=== PATIENT | female | born 1935 | race Caucasian/White ===

== ENCOUNTER 2017-03-09 19:56 | Inpatient (IN) | payer MEDICARE ==
[2017-03-09 20:49] LABS: #Basophils 0.1 thou/uL (0.0-0.2); #Eosinphils 0.1 thou/uL (0.0-0.7); #Monocytes 0.6 thou/uL (0.11-0.59); #Neutrophils 5.2 thou/uL (1.40-6.50); %Basophils 0.7 % (0.0-1.0); %Eosinophils 1.8 % (0.0-10.0); %Lymphocytes 24.8 % (21.0-51.0); %Monocytes 7.7 % (0.0-10.0); Hemoglobin 11.6 g/dL (12.0-16.0); Mean Corpuscular HGB CONC 32.9 g/dL (32.0-36.0); Mean Corpuscular Hemoglobin 33.3 pg (27.0-31.0); Platelet Count 269 thou/uL (130-400); RBC Distribution Width 11.9 % (11.5-14.5); Red Blood Cell (RBC) Count 3.48 mill/uL (4.20-5.40); White Blood Cell (WBC) Count 7.9 thou/uL (4.8-10.8)
--- NOTE | 2017-03-09 20:52 | RAD ---
AP VIEW OF THE CHEST 03/09/17 INDICATION: Syncope. COMPARISON: None. IMPRESSION: No acute cardiopulmonary abnormality. COMMENTS: Lungs are mildly hyperinflated but clear. The cardiomediastinal silhouette is within normal limits. T here are vascular calcifications involving the aortic arch. No definite acute osseous abnormality is evident. POS: [facility]
[2017-03-09 20:54] LABS: PTT 30.3 SEC (22.9-36.1); Prothrombin Time 13.4 SEC (12.0-14.7)
--- NOTE | 2017-03-09 21:04 | CT ---
CT OF THE BRAIN WITHOUT CONTRAST 03/09/17 INDICATION: History of syncope and dizziness. COMPARISON: None. FINDINGS: No acute infarct, hemorrhage, or hydrocephalus is present. Septum pellucidum and third ventricle are midline. Mild age related atrophy is present involving the cerebral and cerebellar hemispheres. The m astoid air cells and paranasal sinuses are clear. There are vascular calcifications involving the int racranial arteries. The skull is intact. IMPRESSION: No acute intracranial abnormalities. POS: [facility]
[2017-03-09 21:17] LABS: ALT (SGPT) 13 U/L (8-55); AST (SGOT) 18 U/L (5-34); Albumin 3.6 g/dL (3.4-4.8); Alkaline Phosphatase 52 U/L (40-150); Anion Gap 15 mmol/L (10-20); BUN (Urea Nitrogen) 14 mg/dL (9.8-20.1); Bilirubin, Total 0.2 mg/dL (0.2-1.2); CK (CPK) 35 U/L (29-168); Calc. Creatinine Clearance 0 mL/min (70-130); Carbon Dioxide 23 mmol/L (23-31); Chloride 108 mmol/L (98-107); Estimated GFR-MDRD 84; Globulin 2.8 g/dL (2.4-3.5); Glucose 117 mg/dL (83-110); Lipase 28 U/L (8-78); Potassium 4.4 mmol/L (3.5-5.1); Protein, Total 6.4 g/dL (6.0-8.3); Sodium 142 mmol/L (136-145)
[2017-03-09 21:20] LABS: CKMB 1.6 ng/mL (0-6.6); Troponin I 0.014 ng/mL (< 0.028)
[2017-03-09 23:12] LABS: Bilirubin Negative (Negative); Blood, Urine Negative (Negative); Clarity CLEAR (Clear); Glucose, Urine (Dipstick) Negative (Negative); Leukocyte Negative (Negative); Nitrite Negative (Negative); Protein, Urine (Dipstick) Negative (Neg-Trace); Specific Gravity, Urine 1.013 (1.002-1.036); Urobilinogen 0.2 mg/dL (0.2-1.0)
[2017-03-10] MEDS ORDERED: Ondansetron ODT 4 MG TAB PO PRN (00:40)
[2017-03-10] MEDS ORDERED: Acetaminophen 325 MG TAB PO PRN (00:40)
[2017-03-10] MEDS ORDERED: Meclizine HCl 25 MG TAB PO SCH ×2 (00:45→05:15)
[2017-03-10 01:53] LABS: CKMB 1.4 ng/mL (0-6.6)
[2017-03-10 02:20] LABS: Troponin I Less than 0.010 ng/mL (< 0.028)
[2017-03-10 03:55] LABS: #Eosinphils 0.1 thou/uL (0.0-0.7); #Lymphocytes 2.2 thou/uL (1.20-3.40); #Monocytes 0.9 thou/uL (0.11-0.59); #Neutrophils 5.5 thou/uL (1.40-6.50); %Basophils 0.3 % (0.0-1.0); %Eosinophils 1.2 % (0.0-10.0); %Monocytes 10.2 % (0.0-10.0); %Neutrophils 63.4 % (42.0-75.0); Hemoglobin 11.1 g/dL (12.0-16.0); Mean Corpuscular HGB CONC 32.1 g/dL (32.0-36.0); Mean Corpuscular Hemoglobin 32.4 pg (27.0-31.0); Mean Platelet Volume 6.9 fL (7.4-10.4); Platelet Count 247 thou/uL (130-400); RBC Distribution Width 11.9 % (11.5-14.5); Red Blood Cell (RBC) Count 3.44 mill/uL (4.20-5.40); White Blood Cell (WBC) Count 8.7 thou/uL (4.8-10.8)
--- NOTE | 2017-03-10 04:10 | HP ---
DATE OF ADMISSION: 03/09/2017 TIME OF SERVICE: 2355 hours. PRIMARY CARE PHYSICIAN: Dr. Argentina Watson. PRIMARY ATOMIZER ASSEMBLER: Dr. North Duke. CHIEF COMPLAINT: Syncope. HISTORY OF PRESENT ILLNESS: Ms. Watkins is a pleasant 81-year-old white female with a history of hypertension, GERD, hyperlipidemia, and coronary artery disease. She sees Dr. Duke every 6 months and follows up with a regular doctor on a normal basis. Today, she was in the kitchen and bent over into the project engineering director and suddenly felt dizzy. She subsequ ently describes sensation of the room spinning around her. She became unsteady on her feet and fell over to the floor. She sustained her injuries. Does not think that she lost consciousness. She had no bowel or bladder incontinence and no tongue biting. She denies any chest pain or difficulty prasad thing, no nausea and vomiting, no GI bleeding. She has been having some sensations of this off and on for the last 3 weeks. Currently, she feels we ak after episodes, but then feel stronger within 30 to 40 minutes. She was brought to the emergency department for evaluation, Here she was noted to have a heart rate in the 30s and pacer pads were placed, but have not needed to be used. On my interview, she describes the sensation of the room spinning around her and a loud metal shabazz s raymond inside of her head when she has lateral rotation of her head. She feels like she is going to pas s out, but does not have the dark tunnel and does not feel like the floor is moving underneath her. In the emergency department, she had negative labs. We were called for further workup. No fevers or chills, no cough or sputum production. PAST MEDICAL HISTORY: 1. Hypertension. 2. GERD. 3. Hyperlipidemia. 4. Coronary artery disease. PAST SURGICAL HISTORY: 1. PTCA with stent x1. 2. Back surgery x2. HOME MEDICATIONS: 1. Bisoprolol 7.5 mg daily. 2. Nexium 20 mg daily. 3. Famotidine 20 mg daily. 4. Lasix 20 mg daily. 5. Isosorbide mononitrate 120 mg daily. 6. KCl 10 mEq daily. 7. Trimethoprim 100 mg daily. 8. Crestor 10 mg daily. 9. Ranexa 500 mg daily. ALLERGIES: NKDA. FAMILY HISTORY: Negative for clotting or bleeding disorder, no venous function. SOCIAL HISTORY: Negative for habits x3. She is . Her accompanies her. REVIEW OF SYSTEMS: Ten point review of systems was performed negative for all systems except stated as per HPI. PHYSICAL EXAMINATION: VITAL SIGNS: Temperature 97.8, pulse 42. During my interview, her pulse ranged from [address] up to 75. She remained in sinus rhythm with same morphology. Blood pressure 131/49, respiratory rat e 17, satting 94% on room air. GENERAL: She is awake. She is alert. She is oriented x3. She is a well-developed, well-nourished, overweight elderly white female, appears to be in no acute distress. HEENT: Normocephalic, atraumatic. Pupils are equal, reactive to light bilaterally, mucous members a re moist. She has no visible lesions. No thrush. NECK: Supple, with no lymphadenopathy, no JVD, no thyromegaly. She has normal carotid upstrokes. S he has a bruit present on the right, but not on the left. LUNGS: Clear to auscultation bilaterally without wheezes, rales, or rhonchi. She has good air movem ent and symmetrical chest excursion. CARDIOVASCULAR: Shows normal S1 and S2. I do not appreciate any murmurs. She is in a regular rhyth m with widely varying rates. ABDOMEN: Soft, it is nontender, nondistended, no mass, no organomegaly. Normoactive bowel sounds pr esent in all 4 quadrants. There is no rebound, rigidity, or guarding. EXTREMITIES: No cyanosis, no clubbing. She has 1+ edema bilateral lower extremities in the mid tibi a level down. Her right leg appears slightly larger than her left, but when I repositioned seemed to be the same. SKIN: Otherwise warm, moist, and well perfused. She does have a superficial varicosities present ab out both of her bilateral lower extremities. MUSCULOSKELETAL: Normal to inspection. She has no inflamed joints. No palpable effusions. NEUROLOGIC: Her cranial nerves II-XII are grossly intact. She has no nystagmus. She has normal spe ech pattern. She has 5/5 strength in all 4 of her extremities. I attempted to get her to rotate her head quickly left to right, but she refused because she felt like it was going to make her have more of the clinging sound. LABORATORY DATA: CMP showed a sodium of 142, potassium 4.4, chloride 108, bicarb 23, BUN 14, creatin ine 0.67, glucose 117, and calcium 9.0. INR normal at 1.0. BNP 67, MB fraction of 1.6, troponin I 0 .014 and TSH 1.56. Liver functions are normal. CBC showed a white count of 7.9, hemoglobin of 11.0, hematocrit 35.2, and platelets 269,000. IMAGING: CT of the brain was negative for acute intracranial abnormalities. Her chest x-ray showed no acute cardiopulmonary abnormalities. ASSESSMENT AND PLAN: 1. Dizziness/presyncope. The patient never passed out. She did have some sensation that she might pass out. Her biggest complaint is a horizontal spinning of the room around her when she laterally r otates her head. Certainly sounds like benign positional vertigo. We will put on meclizine and tasha tor response. We will have PT, OT evaluate her. 2. Sinus bradycardia. Patient has widely varying rate. Certainly, this could be contributing to he r dizziness or presyncope. Dr. Thomas was contacted by the emergency department. We will follow up on the recommendations. She does not having sick sinus syndrome. She might benefit from a pacemaker. 3. Hypertension. Given her low heart rate. Hold her bisoprolol for right now, we will continue her isosorbide and Ranexa. 4. Gastroesophageal reflux disease on famotidine and Nexium, we will continue. 5. Hyperlipidemia, on Crestor, we will continue. 6. History of coronary artery disease without symptoms at present.
[2017-03-10 04:13] LABS: Anion Gap 12 mmol/L (10-20); BUN (Urea Nitrogen) 14 mg/dL (9.8-20.1); Calc. Creatinine Clearance 0 mL/min (70-130); Calcium 8.7 mg/dL (7.8-10.44); Carbon Dioxide 25 mmol/L (23-31); Cardiac Risk 3.5 (Less than 4.5); Chloride 110 mmol/L (98-107); Cholesterol 166 mg/dl (< 200 Desired); Estimated GFR-MDRD 87; Glucose 117 mg/dL (83-110); HDL Cholesterol 47 mg/dL (>60 Neg Risk); LDL Cholesterol, Calculated 103 mg/dL; Potassium 4.2 mmol/L (3.5-5.1); Sodium 143 mmol/L (136-145); Triglycerides 79 mg/dL (Less than 150)
[2017-03-10] MEDS: Meclizine HCl 25 MG TAB PO SCH ×3 (07:19→21:25)
--- NOTE | 2017-03-10 07:45 | ULT ---
BILATERAL CAROTID DUPLEX ULTRASOUND: HISTORY: Right-sided carotid bruit and dizziness. TECHNIQUE: [place] scale ultrasound with color flow and spectral Doppler imaging of the extracranial carotid artery systems is performed bilaterally. FINDINGS: There is mild plaque formation on either side. The peak systolic velocity in the right ICA measures 111 cm/s with an end-diastolic velocity of 31 cm /s and a systolic ration of 1.0. The peak systolic velocity in the left ICA measures 99 cm/s with an end velocity of 28 cm/s and a sys tolic ration of 0.8. Flow in both vertebral arteries remains antegrade. IMPRESSION: No evidence of hemodynamically significant stenosis. POS: [facility]
[2017-03-10] MEDS: Enoxaparin Sodium 40 MG/0.4 ML SYRINGE SC SCH (08:00)
[2017-03-10] MEDS: Aspirin 325 mg Enteric Coated Tablet PO SCH (08:00)
[2017-03-10] MEDS: Famotidine 20 MG TAB PO SCH ×2 (08:01→21:25)
[2017-03-10] MEDS ORDERED: HYDROcodone/Acetaminophen 5/325 mg Tablet ONE (08:08)
[2017-03-10] MEDS: HYDROcodone/Acetaminophen 5/325 mg Tablet PO PRN (08:09)
[2017-03-10 09:54] LABS: Troponin I Less than 0.010 ng/mL (< 0.028)
[2017-03-10] MEDS ORDERED: Meclizine HCl 25 MG TAB ONE (14:09)
[2017-03-10] MEDS: Sodium Chloride 0.9% 1,000 ML IV SCH ×2 (14:11→16:13)
--- NOTE | 2017-03-10 14:52 | PDOC.PN ---
- Subjective Encounter Start Date: 03/10/17 Encounter Start Time: 11:30 Patient is seen today, alert and oriented. Discussed with Daughter at bedside. pt is having no chest pain, She is drowsy. - Objective Resuscitation Status: Resuscitation Status FULL:Full Resuscitation MAR Reviewed: Yes Vital Signs & Weight: Vital Signs (12 hours) Temp Pulse Resp BP Pulse Ox 03/10/17 09:22 63 18 116/47 L 95 03/10/17 08:10 98.1 F 61 14 129/50 L 96 03/10/17 08:00 98.1 F 63 18 94 L I&O: 03/09/17 03/10/17 03/11/17 06:59 06:59 06:59 Intake Total 0 Balance 0 Result Diagrams: 03/10/17 03:42 03/10/17 03:42 Phys Exam - Physical Examination HEENT: PERRLA, moist MMs Neck: no nodes, no JVD Respiratory: no wheezing, no rales Cardiovascular: RRR, no significant murmur Gastrointestinal: soft, non-tender Musculoskeletal: no edema, pulses present Neurological: non-focal, normal sensation Lymphatic: no nodes Psychiatric: normal affect, A&O x 3 Dx/Plan (1) Syncope, cardiogenic Code(s): R55 - SYNCOPE AND COLLAPSE Status: Acute (2) Sinus bradycardia Code(s): R00.1 - BRADYCARDIA, UNSPECIFIED Status: Acute (3) Hypertension Code(s): I10 - ESSENTIAL (PRIMARY) HYPERTENSION Status: Acute (4) GERD (gastroesophageal reflux disease) Code(s): K21.9 - GASTRO-ESOPHAGEAL REFLUX DISEASE WITHOUT ESOPHAGITIS Status: Acute (5) CAD (coronary artery disease) Code(s): I25.10 - ATHSCL HEART DISEASE OF [place] CORONARY ARTERY W/O ANG PCTRS Status: Acute - Plan cont current plan of care, plan discussed w/ family, PT/OT, DVT proph w/lovenox * . Plan: Patient has Symptomatic bradycardia, pt is having Pacers Attached, Cardiology is consulted and plnned for EP study. Will continue to Monitor pt on Telemetry and do Echo to look for Valvular abnormalities. Hypertension Well controlled but on lower Side, Held Bystolic. Continue with Famotidine for GERD. H/o CAD, will continue with Aspirin for now unless cardiology planned for Pacemaker. Will discuss with Cardioogy. DVT prophylaxis Lovenox. Disposition: Pt lives at Home with her Daughter. may need Home health. - Discharge Day Encounter end time: 12:15 Review of Systems - Review of Systems Constitutional: weakness, malaise Eyes: negative: Pain, Vision Change, Conjunctivae Inflammation, Eyelid Inflammation, Redness, Other ENT: negative: Ear Pain, Ear Discharge, Nose Pain, Nose Discharge, Nose Congestion, Mouth Pain, Mouth Swelling, Throat Pain, Throat Swelling, Other Respiratory: negative: Cough, Dry, Shortness of Breath, Hemoptysis, SOB with Excertion, Pleuritic Pain, Sputum, Wheezing Cardiovascular: light headedness Gastrointestinal: negative: Nausea, Vomiting, Abdominal Pain, Diarrhea, Constipation, Melena, Hematochezia, Other Genitourinary: negative: Dysuria, Frequency, Incontinence, Hematuria, Retention , Other Musculoskeletal: negative: Neck Pain, Shoulder Pain, Arm Pain, Back Pain, Hand Pain, Leg Pain, Foot Pain, Other Skin: negative: Rash, Lesions, Sage, Bruising, Other Neurological: Weakness. negative: Numbness, Incoordination, Change in Speech, Confusion, Seizures, Other - Medications/Allergies Allergies/Adverse Reactions: Allergies Allergy/AdvReac Type Severity Reaction Status Date / Time cephalexin Allergy Verified 03/10/17 14:16 clindamycin Allergy Verified 03/10/17 14:15 iodine Allergy Verified 03/10/17 07:49 phenazopyridine Allergy Verified 03/10/17 14:16 Medications: Current Medications Acetaminophen (Tylenol) 650 mg PO Q4H PRN PRN Reason: Headache/Fever or Pain Hydrocodone Bitart/Acetaminophen ([place] 5/325) 1 tab PO Q4H PRN PRN Reason: Moderate Pain (4-6) Last Admin: 03/10/17 08:09 Dose: 1 tab Aspirin (Ecotrin) 325 mg PO DAILY [facility] Last Admin: 03/10/17 08:00 Dose: 325 mg Enoxaparin Sodium (Lovenox) 40 mg SC 0900 [facility] Last Admin: 03/10/17 08:00 Dose: 40 mg Famotidine (Pepcid) 20 mg PO BID [facility] Last Admin: 03/10/17 08:01 Dose: 20 mg Sodium Chloride (Normal Saline 0.9%) 1,000 mls @ 70 mls/hr IV .[id number] [facility] Last Admin: 03/10/17 14:11 Dose: 1,000 mls Isosorbide Mononitrate (Imdur) 120 mg PO DAILY [facility] Last Admin: 03/10/17 08:01 Dose: 120 mg Meclizine HCl (Antivert) 25 mg PO Q8HR [facility] Last Admin: 03/10/17 14:12 Dose: 25 mg Ondansetron HCl (Zofran Odt) 4 mg PO Q6H PRN PRN Reason: Nausea/Vomiting Pantoprazole Sodium (Protonix) 40 mg PO DAILY [facility] Last Admin: 03/10/17 08:01 Dose: 40 mg Ranolazine (Ranexa) 500 mg PO BID [facility] Last Admin: 03/10/17 08:02 Dose: 500 mg Rosuvastatin Calcium (Crestor) 10 mg PO HS [facility] Sodium Chloride (Flush - Normal Saline) 10 ml IVF Q12HR [facility] Last Admin: 03/10/17 08:03 Dose: 10 ml Sodium Chloride (Flush - Normal Saline) 10 ml IVF PRN PRN PRN Reason: Saline Flush
[2017-03-10 17:22] LABS: CKMB 0.8 ng/mL (0-6.6); Troponin I Less than 0.010 ng/mL (< 0.028)
--- NOTE | 2017-03-10 19:24 | CON ---
DATE OF CONSULTATION: 03/10/2017 PRIMARY CARE PHYSICIAN: Argentina Watson M.D. PRIMARY HOUSE MOVER HELPER: [place] Duke M.D. REFERRING DOCTOR: Vignesh Tatum MD REASON FOR CARDIOLOGY CONSULTATION: Sinus bradycardia, dizziness, and fall. No syncopal. HISTORY OF PRESENT ILLNESS: Ms. Watkins is an 81-year-old female with a significant history of coronary artery disease with a history of stent in 1997, chronic back pain and chronic bladder infection. She fell at home on 03/08 when she was bending over to the child adolescent psychiatrist. She felt spinning like dizziness and almost blacked out. She knew she was falling and so tried pulling herself back to keep her balance. However, she fell and she hit her back of her head on the floor. EMS was called by her , who was at the site. She was transferred to [facility] for further evaluation and study. At the ER, the patient was found to be in bradycardia with heart rates down to 30s. Per daughter's report, the patient was asymptomatic, alert and oriented x4 when her heart rate was down to 30s. The patient denies any lightheadedness or near syncopal episode. The patient's CT scan of the head showed no acute intracranial abnormality. The patient's carotid Doppler showing no evidence of stenosis. Patient has the echocardiogram during this admission, the result is pending at this time. She reports that she felt chronic fatigue for more than a few months with vertigo like dizziness. When she was transferred to telemetry floor, her telemetry record showed multiple episodes of bradycardia with 2nd degree AV block Type 2, which longest was more than 1 minute. During the episodes, the patient was alerted and oriented x4, denies any shortness of breath, chest pain or discomfort in her chest, palpitations or fluttering in her chest, nausea, vomiting, diaphoresis or any other cardiac complaints. She was thinking patient's fatigue has come from her stress because she lost her sister about 1 month ago and lost her 2 sons in the past. She denies any history of diabetes. She is eating well and she tried to drink 3-4 bottles of water a day, although she was diagnosed with hiatal hernia and checked by Dr. Portillo a couple of weeks ago. At this time, she does not have the EGD result. She had a history of stent placements x1 in the LAD in 1997. Last cardiac catheterization was in 2010, which shows a patent stent and 50% stenosis in the LAD with EF of 60%. Patient's last echocardiogram was in 2010 which shows EF of 50% to 55%, moderate mitral valve regurgitation, mild to moderate tricuspid regurgitation. PAST MEDICAL HISTORY: 1. Coronary artery disease with stent placement x1 in the LAD in 1997. 2. Hypertension. 3. Hiatal hernia following managed by [facility], Dr. Portillo. 4. Chronic bladder infection. She has been seen urologist. However, she has not been followed up with him for more than 3 months. PAST SURGICAL HISTORY: 1. Stent x1 in the LAD in 1997. 2. Back surgery x2. 3. Cholecystectomy. 4. Uterine suspension due to chronic bladder infections. FAMILY HISTORY: Patient's mother has had a history of pacemaker placement and patient's father due to complication of chronic heart failure. Patient 's 2 sons due to lung cancer possibly from smoking. SOCIAL HISTORY: Patient lives with in her and her daughter. Her daughter lives close by. She is house maker. She stopped smoking when she was around 30s. She denies illicit drug abuse. She enjoys half cup of coffee in the morning. She denied alcohol abuse. ALLERGIES: She is allergic to, 1. IODINE. 2. CEPHALEXIN. 3. CLINDAMYCIN. 4. PHENAZOPYRIDINE. HOME MEDICATIONS: Nexium 40 mg once a day, vitamin C 500 once a day, calcium 500 mg twice a day, vitamin D3 of 1000 units once a day, flaxseed oil 1000 mg 2 tablets twice a day, cranberry supplement 500 mg once a day, Vagifem 10 mcg 1 tablet every day for 14 days and 1 tablet twice per week for duration of use, promethazine DM 6.25/15 of 5 mL by mouth every 6 hours as needed, tetracycline 250 mg 1 tablet every 6 hours, amoxicillin 500 mg once a day, trimethoprim 100 mg q.12 hours, Ecotrin 325 once a day, ibuprofen 400 mg 1 tablet every 4 hours as needed, bisoprolol 5 mg 1.5 tablets once a day, KCl 10 mEq once a day, Lasix 20 mg once a day, Crestor 10 mg once a day, Ranexa 500 mg twice a day, isosorbide mononitrate 120 mg once a day. REVIEW OF SYSTEMS: The following complete review of systems was negative, unless otherwise mentioned in the HPI or below. Constitutional: Weight loss, weight gain, sense of well-being, ability to conduct usual activities, exercise tolerance. Skin: Rash, itching, change in hair growth or loss, nail changes, breast lumps, tenderness, swelling, nipple discharge. Eyes: Vision: Double vision, tearing, blind spots, pain. She has complained about double vision, blurry vision when she has dizziness. HEENT: Headache, nose bleeding, cold, obstruction, discharge from nose, dental difficulty, gingival bleeding, dentures , neck stiffness, pain, tenderness, mass in thyroid or other areas. Cardiovascular: Precordial pain, substernal distress, palpitations, syncope, dyspnea, orthopnea, edema, cyanosis, hypertension, heart murmur, varicosis, claudication. Respiratory: Shortness of breath, wheezing, stridor, cough, hemoptysis. Gastrointestinal: Poor appetite, dysphagia, indigestion, abdominal pain, heartburn, nausea, vomiting, jaundice, constipation, diarrhea, abnormal blood in stool. Genitourinary: Urgency, frequency, dysuria, nocturia , hematuria, polyuria, oliguria, unusual color of urine. Musculoskeletal: She is complaining of the pain around her pelvis due to the history of fall a couple days ago. Negative to swelling, redness or heat of muscle or joint, limitation, of motion, muscular weakness, atrophy, cramps. Neurologic: Conversion paralysis, tremor, incoordination, difficulty with memory, speech, sensory or motor disturbance or muscular coordination. Psychiatric: Emotional problem, anxiety, depression, previous psychiatric care, unusual perceptions, hallucinations. PHYSICAL EXAMINATION: VITAL SIGNS: Blood pressure 116/47. Her heart rate is low as 127 up to 60s with symptomatic respiratory rate 18, temperature 98.1. GENERAL: Well-developed, well-nourished without any acute distress. HEENT: Normocephalic, atraumatic. Eyes: There are no hematoma to her head. EYES: Extraocular muscle movement is intact. Nose mucosae are moist without lesion. NECK: No JVD. Neck is supple, normal range of motion. She does not want to move the head quick due to the vertigo-like dizziness. LUNGS: Clear to auscultation bilaterally. No wheezing, rales, rhonchi noted. CARDIOVASCULAR: Regular rate and rhythm. Normal S1, S2. There are no S3 or S4. No significant murmur, hives, thrill, bruit or rub noted. There are 2+ pulses in the bilateral dorsal pedis, posterior tibial and popliteal. Carotid pulse is present without bruit or thrill. No murmur. 1+ pitting edema in bilateral lower extremities. ABDOMEN: Soft and nontender or mass to palpate, nondistended. Bowel sounds are present. MUSCULOSKELETAL: Able to move all extremities. SKIN: Warm and dry. No skin rash, lesion, or bruise noted. NEUROLOGIC: Alert, oriented x4, awake, normal. Normal affect. Nonfocal. PSYCHIATRIC: Mood, affect normal. EKG: The patient's 12-lead EKG in the ER shows bradycardia, heart rate of [address] elevation or T-wave depression with right bundle- branch block. The patient's carotid Doppler during this admission showed no evidence of stenosis. The patient's echocardiogram was taken, the result is pending at this time. LABORATORY DATA: Patient's WBC 8.7, hemoglobin 11.1, hematocrit 34.7, platelets 274. Sodium 143, potassium 4.2, BUN 14, creatinine 0.65, glucose 117. The patient's CK-MB is 0.1. Troponin negative. Patient's total cholesterol 166, triglycerides 79, HDL is 47, LDL 103 and TSH 1.5631. ASSESSMENT AND PLAN: 1. Dizziness and near syncopal episode secondary to Second degree AV block Type 2. Although patient's bisoprolol was on hold at the ER, the patient's EKG still shows heart rates going down to 30s with 2nd degree AV block type 2. The patient has never passed out and has not had any symptoms such as near syncope. However, she has vertigo like dizziness and chronic fatigue for more than a few months. She has been receiving meclizine from the ER; however, because she has complained of weakness for a couple months, pacemaker placement is beneficial for this patient and her diagnoses and symptoms. 2. Coronary artery disease with history of stent x1 in LAD to [place] in 1997. Patient's condition is stable at this time. We would like to continue to monitor on the telemetry. 3. Hypertension, type patient's blood pressure has been stable at this time. We would like to continue to monitor and adjust patient medication as needed hyperlipidemia, she is on the Crestor. We like to continue to monitor. Thank you very much for allowing Cardiology service to participate in the care of your patient. We will follow along with the patient's care team and make further recommendations as appropriate. KELSY
--- NOTE | 2017-03-11 00:58 | CON ---
DATE OF CONSULTATION: 03/10/2017 INDICATION FOR CONSULTATION: Severe bradycardia which has been symptomatic with episode of syncope. HISTORY OF PRESENT ILLNESS: This is a very unfortunate 81-year-old female who has been followed by Lee Duke for several years. She has undergone angioplasty and stent placement. She has had a histo ry of hypertension and has been treated by beta blockers for the last several weeks. She has been co mplaining of some dizziness and sounds in her head, but she cannot clearly describe a noise. 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 When she presented to the emergency room, she h ad severe bradycardia which is actually a second-degree AV heart block type 2 with heart rates in the 30s to 40s. The initial EKG showed a heart rate of 38 beats per minute. She has been placed on ext ernal pacemaker which she is not using. She has been relatively asymptomatic otherwise with the chepe ycardia. She has had no syncopal episodes since being here and also, the beta blockers have been dis continued, but she continued to have some episodes of second-degree AV heart block even today. We wi ll continue to wait for the beta travis to completely wear off, but it appears that this lady most l ikely is going to need a pacemaker insertion prior to discharge and most likely has significant sever e AV jose disease given the high degree of this blockage and certainly is at risk for developing com plete AV heart block. I did explain to her the procedure and the risks of pacemaker insertion. We w ill continue to follow her for tomorrow at least and decide. If she becomes urgent then, we will hans ce pacemaker sooner than later, she does understand. I did explain the procedure and the risks to in clude bleeding, infection, possibility of pneumothorax, hemothorax, or pericardial tamponade and she is agreeable that should she need a pacemaker, then we will proceed with this either on tomorrow if i t becomes urgent or probably Saturday if she remains relatively stable, otherwise. If all of her symp toms and EKG changes completely resolve, once the beta travis is out of the system, then we may be a ble to avoid the pacemaker for a while, but it would appear that she most likely is going to need a p acemaker. As far as the review of systems, past medical history, social history, please refer to the notes dictated by the nurse practitioner. PHYSICAL EXAMINATION: GENERAL: Reveals a very pleasant lady who is in no acute distress. She is alert and oriented at thi s time. Her heart rate has been in the 60s this afternoon and without any significant complaints, bu t she did have some episodes of second-degree heart block again around 4:30 in the afternoon. HEENT: Shows the head to be normocephalic and atraumatic. Carotid pulses are present; they are slig htly decreased, but I did not hear any significant bruits. She has very soft bruits which are radiat ing from the aortic area, which most likely indicates some mild aortic valve sclerosis, but no signif icant murmurs were noted. CHEST: Clear to auscultation. CARDIOVASCULAR: Reveals a regular rate at this time, somewhat bradycardic at times, but otherwise is regular during my examination. There were no gross murmurs noted. She has a very soft systolic mur mur at the apex. ABDOMEN: Soft and nontender. Positive bowel sounds are present. EXTREMITIES: Showed no clubbing or cyanosis. She did have some mild right ankle edema. Pedal pulse s are present. NEUROLOGIC: She appears to be intact. She does have a small lump on the back of her head, but with some tenderness, but otherwise appears to be stable. IMPRESSION: 1. Second-degree atrioventricular heart block with severe bradycardia with symptomatic syncope and m ost likely will need to undergo pacemaker insertion. She has been on beta blockers. We will wait fo r these to be washed out and if she continues to have episodes, then a pacemaker will be in order and most likely, she will be needing a pacemaker regardless due to the high possibility of progression o f the atrioventricular block. 2. History of coronary artery disease. This appears to be stable at this time. She denied any ches t pain. EKG does not show any evidence of ischemia. She may need to undergo further evaluation, how ever, has some possibility of right coronary artery disease affecting the nodals of the conduction sy stem, this may be something that we need to discuss, also she may be having coronary artery disease. I will need to evaluate whether or not she has any recent stress testing, but she denies any chest p ain or shortness of breath, otherwise. 3. Hyperlipidemia. This is stable at this time. We will continue her medications. She also has ga stroesophageal reflux disease which also remains stable. We will follow her very carefully throughou t the hospital course, but most likely, she will need a pacemaker insertion prior to discharge.
[2017-03-11] MEDS: Sodium Chloride 0.9% 1,000 ML IV SCH (04:23)
[2017-03-11] MEDS: Meclizine HCl 25 MG TAB PO SCH ×3 (05:26→21:02)
[2017-03-11] MEDS: HYDROcodone/Acetaminophen 5/325 mg Tablet PO PRN ×2 (06:24→22:55)
[2017-03-11] MEDS: Famotidine 20 MG TAB PO SCH ×2 (08:18→20:56)
[2017-03-11] MEDS: Enoxaparin Sodium 40 MG/0.4 ML SYRINGE SC SCH (08:18)
[2017-03-11] MEDS: Aspirin 325 mg Enteric Coated Tablet PO SCH (08:18)
--- NOTE | 2017-03-11 09:46 | PDOC.CTH ---
<SteveAna - Last Filed: 03/11/17 09:44> Cardiology Progress Note - Subjective The pt seen and examined. No overnight events. No cardiac complaints. She denied dizziness or near syncopal episodes when she got up to chair with assist last night. She reported that she sometimes forgets which started after she lost her son. - Objective Vital Signs Temp Pulse Resp BP BP Pulse Ox 03/11/17 08:00 98 F 62 16 153/60 H 92 L 03/11/17 03:44 98.4 F 70 14 121/56 L 92 L 03/10/17 03/11/17 03/12/17 06:59 06:59 06:59 Intake Total 1348 Output Total 880 Balance 468 - Physical Examination General/Neuro: alert & oriented x3 Neck: no JVD present Lungs: CTA Heart: RRR Abdomen: soft Extremities: other: (no edemas) - Telemetry Telemetry Rhythm: SR - Labs Result Diagrams: 03/10/17 03:42 03/10/17 03:42 Troponin/CKMB CK-MB (CK-2) 0.8 ng/mL (0-6.6) 03/10/17 16:37 Troponin I Less than 0.010 ng/mL (< 0.028) 03/10/17 16:37 - Assessment/Plan 1. 2nd AVB type 2 - The pt has been asymptomatic; The pt has not decided to undergo PM placement at this moment; cont. monitor on tele 2. Syncope - stable; cont. monitor; Instructed to call for assist with movement/ activities. 3. CAD with hx of stent in 1997 - stable; BBlocker is on hold due to Bradycardia ; on Lovenox; cont. monitor on tele 4. HTN - stable with current medication 5. Hyperlipidemia - on Statin MAR reviewed Review of Systems - Review of Systems Constitutional: reports: see HPI EENTM: reports: no symptoms reported Respiratory: reports: no symptoms reported Cardiac (ROS): reports: no symptoms reported ABD/GI: reports: no symptoms reported : reports: no symptoms reported Musculoskeletal: reports: no symptoms reported Skin: reports: no symptoms reported Neurological: reports: no symptoms reported <Sukhi Thomas - Last Filed: 03/11/17 17:57> Cardiology Progress Note - Objective Vital Signs Temp Pulse Pulse Resp BP BP Pulse Ox 03/11/17 17:00 98.3 F 37 L 20 109/55 L 96 03/11/17 13:19 98.0 F 39 L 20 118/56 L 03/11/17 10:25 45 L 03/11/17 08:00 98 F 62 16 153/60 H 92 L 03/10/17 03/11/17 03/12/17 06:59 06:59 06:59 Intake Total 1348 Output Total 880 Balance 468 - Labs Result Diagrams: 03/10/17 03:42 03/10/17 03:42 Troponin/CKMB CK-MB (CK-2) 0.8 ng/mL (0-6.6) 03/10/17 16:37 Troponin I Less than 0.010 ng/mL (< 0.028) 03/10/17 16:37 - Assessment/Plan Pt. seen and evaluated by me. I agree with the A/P by the C SOFTWARE ENGINEER. She continues to have 2nd degree AVB II. HR in the 30-40's. I have advised pacemaker insertion. I explained the procedure and risks again today. Plan for insertion tomorrow.
[2017-03-11] MEDS: Furosemide 20 MG TAB PO SCH (10:24)
[2017-03-11] MEDS: Potassium Chloride 10 MEQ TAB PO SCH (10:24)
--- NOTE | 2017-03-11 11:09 | PDOC.PN ---
- Subjective Encounter Start Date: 03/11/17 Encounter Start Time: 09:00 Patient is seen today, she c/o feeling very lethargic and weak, no dizi spells, She did had a dip in her heart rate this morning to 30beats/min - Objective Resuscitation Status: Resuscitation Status FULL:Full Resuscitation MAR Reviewed: Yes Vital Signs & Weight: Vital Signs (12 hours) Temp Pulse Resp BP BP Pulse Ox 03/11/17 08:00 98 F 62 16 153/60 H 92 L 03/11/17 03:44 98.4 F 70 14 121/56 L 92 L I&O: 03/10/17 03/11/17 03/12/17 06:59 06:59 06:59 Intake Total 1348 Output Total 880 Balance 468 Result Diagrams: 03/10/17 03:42 03/10/17 03:42 Phys Exam - Physical Examination HEENT: PERRLA, moist MMs Neck: no nodes, no JVD Respiratory: no wheezing, no rales Cardiovascular: RRR, no significant murmur Gastrointestinal: soft, non-tender Musculoskeletal: no edema, pulses present Neurological: non-focal, normal sensation Dx/Plan (1) Syncope, cardiogenic Code(s): R55 - SYNCOPE AND COLLAPSE Status: Acute (2) Sinus bradycardia Code(s): R00.1 - BRADYCARDIA, UNSPECIFIED Status: Acute (3) Hypertension Code(s): I10 - ESSENTIAL (PRIMARY) HYPERTENSION Status: Acute (4) GERD (gastroesophageal reflux disease) Code(s): K21.9 - GASTRO-ESOPHAGEAL REFLUX DISEASE WITHOUT ESOPHAGITIS Status: Acute (5) CAD (coronary artery disease) Code(s): I25.10 - ATHSCL HEART DISEASE OF [place] CORONARY ARTERY W/O ANG PCTRS Status: Acute - Plan cont current plan of care, plan discussed w/ family, PT/OT, DVT proph w/lovenox * . Plan: Patient has Symptomatic bradycardia, pt is having Pacers Attached, Cardiology is consulted and plnned for EP study and possible pacemaker tomorrow if family is agreeing for it.. Will continue to Monitor pt on Telemetry and Echo pending. Hypertension Well controlled but on lower Side, Held Bystolic. Continue with Famotidine for GERD. H/o CAD, will continue with Aspirin for now unless cardiology planned for Pacemaker. DVT prophylaxis Lovenox. Disposition: Pt lives at Home with her Daughter. may need Home health. - Discharge Day Encounter end time: 09:35 Review of Systems - Review of Systems Constitutional: weakness, malaise. negative: fever, chills, sweats, other Eyes: negative: Pain, Vision Change, Conjunctivae Inflammation, Eyelid Inflammation, Redness, Other ENT: negative: Ear Pain, Ear Discharge, Nose Pain, Nose Discharge, Nose Congestion, Mouth Pain, Mouth Swelling, Throat Pain, Throat Swelling, Other Respiratory: negative: Cough, Dry, Shortness of Breath, Hemoptysis, SOB with Excertion, Pleuritic Pain, Sputum, Wheezing Cardiovascular: negative: chest pain, palpitations, orthopnea, paroxysmal nocturnal dyspnea, edema, light headedness, other Genitourinary: negative: Dysuria, Frequency, Incontinence, Hematuria, Retention , Other Musculoskeletal: negative: Neck Pain, Shoulder Pain, Arm Pain, Back Pain, Hand Pain, Leg Pain, Foot Pain, Other Skin: negative: Rash, Lesions, Sage, Bruising, Other Neurological: Weakness. negative: Numbness, Incoordination, Change in Speech, Confusion, Seizures, Other - Medications/Allergies Allergies/Adverse Reactions: Allergies Allergy/AdvReac Type Severity Reaction Status Date / Time cephalexin Allergy Verified 03/10/17 14:16 clindamycin Allergy Verified 03/10/17 14:15 iodine Allergy Verified 03/10/17 07:49 phenazopyridine Allergy Verified 03/10/17 14:16 Medications: Current Medications Acetaminophen (Tylenol) 650 mg PO Q4H PRN PRN Reason: Headache/Fever or Pain Hydrocodone Bitart/Acetaminophen ([place] 5/325) 1 tab PO Q4H PRN PRN Reason: Moderate Pain (4-6) Last Admin: 03/11/17 06:24 Dose: 1 tab Aspirin (Ecotrin) 325 mg PO DAILY [facility] Last Admin: 03/11/17 08:18 Dose: 325 mg Enoxaparin Sodium (Lovenox) 40 mg SC 0900 [facility] Last Admin: 03/11/17 08:18 Dose: 40 mg Famotidine (Pepcid) 20 mg PO BID [facility] Last Admin: 03/11/17 08:18 Dose: 20 mg Furosemide (Lasix) 20 mg PO DAILY [facility] Last Admin: 03/11/17 10:24 Dose: 20 mg Sodium Chloride (Normal Saline 0.9%) 1,000 mls @ 70 mls/hr IV .[id number] [facility] Last Admin: 03/11/17 04:23 Dose: 1,000 mls Isosorbide Mononitrate (Imdur) 120 mg PO DAILY [facility] Last Admin: 03/11/17 08:18 Dose: 120 mg Meclizine HCl (Antivert) 25 mg PO Q8HR [facility] Last Admin: 03/11/17 05:26 Dose: 25 mg Ondansetron HCl (Zofran Odt) 4 mg PO Q6H PRN PRN Reason: Nausea/Vomiting Pantoprazole Sodium (Protonix) 40 mg PO DAILY [facility] Last Admin: 03/11/17 08:18 Dose: 40 mg Potassium Chloride (Klor-Con 10) 10 meq PO DAILY [facility] Last Admin: 03/11/17 10:24 Dose: 10 meq Ranolazine (Ranexa) 500 mg PO BID [facility] Last Admin: 03/11/17 08:18 Dose: 500 mg Rosuvastatin Calcium (Crestor) 10 mg PO HS [facility] Last Admin: 03/10/17 21:24 Dose: 10 mg Sodium Chloride (Flush - Normal Saline) 10 ml IVF Q12HR [facility] Last Admin: 03/11/17 08:18 Dose: Not Given Sodium Chloride (Flush - Normal Saline) 10 ml IVF PRN PRN PRN Reason: Saline Flush
[2017-03-12] MEDS ORDERED: CEFAZOLIN 1 GM VIAL ONE (07:18)
[2017-03-12] MEDS ORDERED: Gentamicin 80 MG/2 ML VIAL ONE (07:18)
[2017-03-12] MEDS ORDERED: CEFAZOLIN/Water 2 GM/20 ML SYRINGE ONE (07:18)
[2017-03-12] MEDS ORDERED: Midazolam HCl 2 mg/2 ml Vial ONE (09:38)
[2017-03-12] MEDS ORDERED: Acetaminophen/Codeine 30-300mg Tablet PO PRN (10:31)
[2017-03-12] MEDS: Furosemide 20 MG TAB PO SCH (11:49)
[2017-03-12] MEDS: Aspirin 325 mg Enteric Coated Tablet PO SCH (11:49)
[2017-03-12] MEDS: Potassium Chloride 10 MEQ TAB PO SCH (11:49)
[2017-03-12] MEDS: Sodium Chloride 0.9% 1,000 ML IV SCH ×2 (11:50)
[2017-03-12] MEDS: Famotidine 20 MG TAB PO SCH ×2 (11:51→21:13)
[2017-03-12] MEDS: Meclizine HCl 25 MG TAB PO SCH ×3 (11:51→21:13)
[2017-03-12] MEDS: Enoxaparin Sodium 40 MG/0.4 ML SYRINGE SC SCH (11:55)
--- NOTE | 2017-03-12 12:35 | RAD ---
FRONTAL VIEW CHEST: CLINICAL HISTORY: Post cardiac pacing device placement. COMPARISON: 03/09/2017 FINDINGS: There is a dual-lead left subclavian approach cardiac pacing device, with leads overlying the expecte d region of the right atrium and right ventricle, new from prior exam of 03/09/2017. There is no obv ious post procedure pneumothorax. Interstitial prominence of each lung is again seen. There is prom inence of the cardiac silhouette and pulmonary vasculature, to indicate CHF. No osseous degenerative changes are present. Vascular calcification overlying the aortic arch is seen. IMPRESSION: 1. Placement of left subclavian approach dual-lead cardiac pacing device. 2. No post procedural pneumothorax of significance is evident. POS: MARY CARMEN
[2017-03-12 15:17] LABS: Bilirubin Negative (Negative); Blood, Urine Small (Negative); Clarity CLEAR (Clear); Glucose, Urine (Dipstick) Negative (Negative); Leukocyte Negative (Negative); Nitrite Negative (Negative); Protein, Urine (Dipstick) Negative (Neg-Trace); Specific Gravity, Urine 1.015 (1.002-1.036); Urobilinogen 0.2 mg/dL (0.2-1.0)
[2017-03-12 15:20] LABS: Bacteria/HPF None Seen HPF (None Seen); Hyaline Casts/LPF 0-3 HYALINE CAST LPF (0-3 Hyaline); Squamous Epithelial 0-3 HPF (0-3); WBC/HPF 0-3 HPF (0-3)
--- NOTE | 2017-03-12 15:47 | PDOC.PN ---
- Subjective Encounter Start Date: 03/12/17 Encounter Start Time: 13:00 - Objective Resuscitation Status: Resuscitation Status FULL:Full Resuscitation MAR Reviewed: Yes Vital Signs & Weight: Vital Signs (12 hours) Temp Pulse Resp BP Pulse Ox 03/12/17 08:00 99.0 F 45 L 14 03/12/17 04:00 99.0 F 45 L 14 128/83 91 L I&O: 03/11/17 03/12/17 03/13/17 06:59 06:59 06:59 Intake Total 1348 1760 Output Total 880 Balance 468 1760 Result Diagrams: 03/10/17 03:42 03/10/17 03:42 Radiology Reviewed by me: Yes Phys Exam - Physical Examination HEENT: PERRLA, moist MMs Neck: no nodes, no JVD Respiratory: no wheezing, no rales Cardiovascular: RRR, no significant murmur Gastrointestinal: soft, non-tender Musculoskeletal: no edema, pulses present Neurological: non-focal Lymphatic: no nodes Psychiatric: normal affect, A&O x 3 Dx/Plan (1) Syncope, cardiogenic Code(s): R55 - SYNCOPE AND COLLAPSE Status: Acute (2) Sinus bradycardia Code(s): R00.1 - BRADYCARDIA, UNSPECIFIED Status: Acute (3) Hypertension Code(s): I10 - ESSENTIAL (PRIMARY) HYPERTENSION Status: Acute (4) GERD (gastroesophageal reflux disease) Code(s): K21.9 - GASTRO-ESOPHAGEAL REFLUX DISEASE WITHOUT ESOPHAGITIS Status: Acute (5) CAD (coronary artery disease) Code(s): I25.10 - ATHSCL HEART DISEASE OF [place] CORONARY ARTERY W/O ANG PCTRS Status: Acute (6) Urge incontinence of urine Code(s): N39.41 - URGE INCONTINENCE Status: Acute - Plan cont current plan of care, plan discussed w/ family, PT/OT, DVT proph w/lovenox * . Plan: Patient c/o burning on passing urine, Will do UA look for UTI. Jakob had pacemaker placed Today by cardiology. cureently pacing 70. Will continue to Monitor pt on Telemetry and Echo was normal EF of 60%.. Hypertension Well controlled but on lower Side, Held Bystolic. Continue with Famotidine for GERD. H/o CAD, will continue with Aspirin for now unless cardiology planned for Pacemaker. DVT prophylaxis Lovenox. Disposition: Pt lives at Home with her Daughter. may need Home health. - Discharge Day Encounter end time: 13:35 Review of Systems - Review of Systems Constitutional: negative: fever, chills, sweats, weakness, malaise, other Eyes: negative: Pain, Vision Change, Conjunctivae Inflammation, Eyelid Inflammation, Redness, Other ENT: negative: Ear Pain, Ear Discharge, Nose Pain, Nose Discharge, Nose Congestion, Mouth Pain, Mouth Swelling, Throat Pain, Throat Swelling, Other Respiratory: negative: Cough, Dry, Shortness of Breath, Hemoptysis, SOB with Excertion, Pleuritic Pain, Sputum, Wheezing Cardiovascular: chest pain. negative: palpitations, orthopnea, paroxysmal nocturnal dyspnea, edema, light headedness, other Gastrointestinal: negative: Nausea, Vomiting, Abdominal Pain, Diarrhea, Constipation, Melena, Hematochezia, Other Genitourinary: Dysuria, Frequency. negative: Incontinence, Hematuria, Retention , Other Musculoskeletal: negative: Neck Pain, Shoulder Pain, Arm Pain, Back Pain, Hand Pain, Leg Pain, Foot Pain, Other Skin: negative: Rash, Lesions, Sage, Bruising, Other Neurological: negative: Weakness, Numbness, Incoordination, Change in Speech, Confusion, Seizures, Other - Medications/Allergies Allergies/Adverse Reactions: Allergies Allergy/AdvReac Type Severity Reaction Status Date / Time cephalexin Allergy Verified 03/10/17 14:16 clindamycin Allergy Verified 03/10/17 14:15 iodine Allergy Verified 03/10/17 07:49 phenazopyridine Allergy Verified 03/10/17 14:16 Medications: Current Medications Acetaminophen (Tylenol) 650 mg PO Q4H PRN PRN Reason: Headache/Fever or Pain Acetaminophen/Codeine Phosphate (Tylenol #3) 1 tab PO Q4H PRN PRN Reason: Mild Pain (1-3) Hydrocodone Bitart/Acetaminophen ([place] 5/325) 1 tab PO Q4H PRN PRN Reason: Moderate Pain (4-6) Last Admin: 03/11/17 22:55 Dose: 1 tab Aspirin (Ecotrin) 325 mg PO DAILY [facility] Last Admin: 03/12/17 11:49 Dose: 325 mg Famotidine (Pepcid) 20 mg PO BID [facility] Last Admin: 03/12/17 11:51 Dose: 20 mg Furosemide (Lasix) 20 mg PO DAILY [facility] Last Admin: 03/12/17 11:49 Dose: 20 mg Sodium Chloride (Normal Saline 0.9%) 1,000 mls @ 70 mls/hr IV .[id number] [facility] Last Admin: 03/12/17 11:50 Dose: 1,000 mls Isosorbide Mononitrate (Imdur) 120 mg PO DAILY [facility] Last Admin: 03/12/17 11:48 Dose: 120 mg Meclizine HCl (Antivert) 25 mg PO Q8HR [facility] Last Admin: 03/12/17 13:43 Dose: 25 mg Ondansetron HCl (Zofran Odt) 4 mg PO Q6H PRN PRN Reason: Nausea/Vomiting Pantoprazole Sodium (Protonix) 40 mg PO DAILY [facility] Last Admin: 03/12/17 11:49 Dose: 40 mg Potassium Chloride (Klor-Con 10) 10 meq PO DAILY [facility] Last Admin: 03/12/17 11:49 Dose: 10 meq Ranolazine (Ranexa) 500 mg PO BID [facility] Last Admin: 03/12/17 11:48 Dose: 500 mg Rosuvastatin Calcium (Crestor) 10 mg PO HS [facility] Last Admin: 03/11/17 20:57 Dose: 10 mg Sodium Chloride (Flush - Normal Saline) 10 ml IVF Q12HR [facility] Last Admin: 03/12/17 11:52 Dose: Not Given Sodium Chloride (Flush - Normal Saline) 10 ml IVF PRN PRN PRN Reason: Saline Flush
[2017-03-13] MEDS: Meclizine HCl 25 MG TAB PO SCH ×2 (05:21→13:45)
[2017-03-13] MEDS: Sodium Chloride 0.9% 1,000 ML IV SCH ×2 (05:22→13:47)
--- NOTE | 2017-03-13 07:32 | CCL ---
DATE: 03/12/2017 INDICATION FOR PROCEDURE: An 81-year-old female with symptomatic bradycardia with second degree hear t block type 2 with heart rates in the 30s and 40s. She was advised to undergo pacemaker insertion. She was taken to the cardiac supervisor labor gang, prepped, and draped in sterile fashion. Using a left subclavi an approach, the pacemaker was inserted without difficulties or complications. The full dictated not e can be found in the chart. She was inserted with a dual-chamber pacemaker from [employer] with a ti e-in lead in the right atrium and screw-in lead in the right ventricle. This is an MRI compatible de vice, an Advisa. The pacemaker was set with the upper rate of 130, and the lower rate was set at 60. There were no difficulties or complications encountered. POS: MARY CARMEN
--- NOTE | 2017-03-13 08:40 | PDOC.CTH ---
Cardiology Progress Note - Subjective The pt seen and examined. No overnight events. No cardiac complaints. She complains of mild fatigue at this moment. She has not walked since she underwent PM placement yesterday. - Objective Vital Signs Temp Pulse Resp BP Pulse Ox 03/13/17 08:00 98.0 F 73 16 03/13/17 07:44 98.0 F 73 16 116/57 L 93 L 03/13/17 03:54 99.4 F 91 18 143/92 H 95 Weight 136 lb 9.6 oz 03/12/17 03/13/17 03/14/17 06:59 06:59 06:59 Intake Total 1760 2418 Output Total 1325 Balance 1760 1093 - Physical Examination General/Neuro: alert & oriented x3 Neck: no JVD present Lungs: CTA Heart: other: (irregular) Abdomen: soft Extremities: other: (No edema) - Telemetry Telemetry Rhythm: AV paced; underline 2 AVB - Labs Result Diagrams: 03/10/17 03:42 03/10/17 03:42 Troponin/CKMB CK-MB (CK-2) 0.8 ng/mL (0-6.6) 03/10/17 16:37 Troponin I Less than 0.010 ng/mL (< 0.028) 03/10/17 16:37 - Assessment/Plan 1. 2nd AVB type 2 w/ S/p PM placement on 03/12/17 - Dual [employer] Advisa, MRI compatible, with setting of upper rate of 130 and lower rate of 60. 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 Syncope - stable; cont. monitor; 3. CAD with hx of stent in 1997 - stable; Re-start Bystolic 2.5mg PO daily for BBlocker; on ASA. 4. HTN - Restart Bystolic with low dose; cont. monitor 5. Hyperlipidemia - on Statin MAR reviewed * From Cardiac standpoint, the pt is stable to discharge to home once she can walk around nursing station without any difficulties. * [facility] machine will be sent to the pt's address. * The pt will f/u with Dr Thomas' office for the PM site check within 2 wks. * The pt will f/u with Dr Duke's office within 2 wks for hospital f/u. Thank you very much for cardiology consult request Review of Systems - Review of Systems Constitutional: reports: no symptoms reported EENTM: reports: no symptoms reported Respiratory: reports: no symptoms reported Cardiac (ROS): reports: no symptoms reported ABD/GI: reports: no symptoms reported : reports: no symptoms reported Musculoskeletal: reports: no symptoms reported Skin: reports: no symptoms reported
[2017-03-13] MEDS ORDERED: Nebivolol HCl 2.5 MG TAB PO SCH (09:00)
[2017-03-13] MEDS: Aspirin 325 mg Enteric Coated Tablet PO SCH (09:47)
[2017-03-13] MEDS: Famotidine 20 MG TAB PO SCH (09:48)
[2017-03-13] MEDS: Potassium Chloride 10 MEQ TAB PO SCH (09:48)
[2017-03-13] MEDS: Furosemide 20 MG TAB PO SCH (09:48)
[2017-03-13 12:49] VITALS: BP 127/60; TEMP 96.8
--- NOTE | 2017-03-13 13:02 | DIS ---
DATE OF ADMISSION: 03/09/2017 DATE OF DISCHARGE: 03/13/2017 ADMITTING DIAGNOSIS: Symptomatic bradycardia. DISCHARGE DIAGNOSES: Symptomatic bradycardia, status post pacemaker placement. SECONDARY DIAGNOSES: 1. Hypertension. 2. Moderate dehydration. 3. Gastroesophageal reflux disease. 4. Hyperlipidemia. 5. History of coronary artery disease. CONSULTANTS: Involved in the care is Cardiology, Dr. Thomas. PROCEDURES: Pacemaker implantation on the left precordium. HISTORY OF PRESENT ILLNESS AND HOSPITAL COURSE: In brief, this is an 81-year-old elderly white femal e, who presented to the ER with a syncopal episode following symptomatic bradycardia and she fell otto k hitting her head with no major injuries, the CT head being normal. The patient had a persistent dr op in her heart rate to less than 30s to 45 with drop in the blood pressures and also being symptomat ic. Initially, it was thought the patient could be bradycardic secondary to Bystolic which was 7.5 m g. This was stopped and even after that after 2 days, she is still having low heart rate. The patie nt was taken to OR for a pacemaker implantation. The patient tolerated the procedure very well. No further complications were noted. A pacemaker had upper limit of 130 and the lower limit of 60 of he art rate. The patient was not symptomatic again and her heart rate remained stable and the patient h ad walked in the lobby with no symptoms. Cardiology has evaluated the patient on the day of discharg e and patient was discharged home in stable condition. The patient's home medication has been changed from Bystolic from 7.5 mg to 2.5 mg daily. Otherwise, rest of the medications remain the same. PHYSICAL EXAMINATION: VITAL SIGNS: Blood pressures are 116/57, heart rate is 93, respiration rate is 16, saturation is 93% on room air. GENERAL: The patient is moderately built and moderately nourished, does not appear in acute distress at this time. Alert and oriented x3. HEENT: Atraumatic, normocephalic. PERRLA. Extraocular muscles were intact. Oral mucosa is pink an d moist. CARDIOVASCULAR: S1 and S2 normal. No murmurs, rubs, or gallops. LUNGS: Bilateral air entry was equal. No wheezing, no crackles. ABDOMEN: Soft, nontender. No guarding or rebound tenderness. Bowel sounds normal. MUSCULOSKELETAL: No calf tenderness. No pedal edema. No joint tenderness. No joint swelling. SKIN: Surgical site skin has no evidence of any bleeding and surgical lines are intact. No evidence of bleeding was noted. DISCHARGE MEDICATIONS: 1. Esomeprazole 20 mg daily. 2. Lasix 20 mg p.o. daily. 3. Ibuprofen 400 mg as needed at bedtime for pain. 4. Isosorbide mononitrate 120 mg p.o. daily. 5. Albuterol 2.5 mg daily. 6. Potassium chloride 10 mEq daily. 7. Hydralazine 100 mg daily. 8. Rosuvastatin 10 mg p.o. at bedtime. DISCHARGE INSTRUCTIONS: Continue activity as tolerated. Advised to follow up with the primary care physician in 1-2 weeks. Advised to follow up with cardiology in 2 weeks. Advised to change her Byst olic to 2.5 mg. Continue activity as tolerated. Advised general diet. I spent 35 minutes with this patient on the day of discharge.
--- NOTE | 2017-03-16 14:51 | EKG ---
Test Reason : SYNCOPE, BRADYCARDIA Blood Pressure : / mmHG Vent. Rate : 038 BPM Atrial Rate : 038 BPM P-R Int : 170 ms QRS Dur : 124 ms QT Int : 544 ms P-R-T Axes : 055 081 052 degrees QTc Int : 432 ms Marked sinus bradycardia Right bundle branch block Abnormal ECG Confirmed by KALI RHODES, GRAZYNA ([id number]), publishing editor BE JAMES ([id number]) on 03/16/2017 2:51:00 PM Referred By: Confirmed By:GRAZYNA BASS MD
== END 2017-03-13 14:02 | disposition home or self-care (01) | DRG 244 ==
LOC: ERS 19:56 → ERHOLD 22:10 → 2NO 03-10 15:11
PROVIDERS: ADMIT Internal Medicine Infectious Disease; ATTEND Internal Medicine Infectious Disease
PROC: 0JH606Z Insertion of Pacemaker, Dual Chamber into Chest Subcutaneous Tissue and Fascia, Open Approach (ICD-10-PCS; principal; 2017-03-12)
PROC: 02H63JZ Insertion of Pacemaker Lead into Right Atrium, Percutaneous Approach (ICD-10-PCS; 2017-03-12)
PROC: 02HK3JZ Insertion of Pacemaker Lead into Right Ventricle, Percutaneous Approach (ICD-10-PCS; 2017-03-12)
DX: R00.1 Bradycardia, unspecified (principal); E86.0 Dehydration; I44.1 Atrioventricular block, second degree; I10 Essential (primary) hypertension; K21.9 Gastro-esophageal reflux disease without esophagitis; E78.5 Hyperlipidemia, unspecified; I25.10 Atherosclerotic heart disease of native coronary artery without angina pectoris; R55 Syncope and collapse; Z95.5 Presence of coronary angioplasty implant and graft; W01.190A Fall on same level from slipping, tripping and stumbling with subsequent striking against furniture, initial encounter; N39.41 Urge incontinence
CPT/HCPCS: 33208; 36415; 70450; 71010; 71045; 80048; 80053; 80061; 81001; 81003; 82553; 83690; 83880; 84443; 84484; 85025; 85610; 85730; 93005; 93010; 93306; 93798; 93880; 96360; 96361; 99152; 99153; A4216; C1785; C1898; G8978-GP-CJ; G8979-GP-CI; G8987-GO-CK; G8988-GO-CI; J0690; J1580; J1650; J2250

== ENCOUNTER 2017-08-24 19:30 | Inpatient (IN) | payer MEDICARE ==
[~2017-08-24 19:30] MED LIST: ISOVUE-370 76%-LOCM 1 ML ONE
[2017-08-24] MEDS ORDERED: Ondansetron ODT 4 MG TAB ONE (21:19)
[2017-08-24] MEDS ORDERED: Loperamide HCl 2 MG CAP ONE (21:19)
[2017-08-24 21:52] LABS: #Lymphocytes 0.5 thou/uL (1.20-3.40); #Monocytes 0.7 thou/uL (0.11-0.59); #Neutrophils 7.8 thou/uL (1.40-6.50); %Basophils 0.1 % (0.0-1.0); %Eosinophils 0.2 % (0.0-10.0); %Lymphocytes 5.3 % (21.0-51.0); %Monocytes 7.8 % (0.0-10.0); %Neutrophils 86.6 % (42.0-75.0); Hemoglobin 11.9 g/dL (12.0-16.0); Mean Corpuscular HGB CONC 33.3 g/dL (32.0-36.0); Mean Corpuscular Hemoglobin 32.5 pg (27.0-31.0); Mean Corpuscular Volume 97.3 fl (81.0-99.0); Mean Platelet Volume 7.3 fL (7.4-10.4); Platelet Count 177 thou/uL (130-400); RBC Distribution Width 13.5 % (11.5-14.5); Red Blood Cell (RBC) Count 3.65 mill/uL (4.20-5.40)
[2017-08-24 22:15] LABS: ALT (SGPT) 13 U/L (8-55); AST (SGOT) 22 U/L (5-34); Albumin 3.4 g/dL (3.4-4.8); Alkaline Phosphatase 49 U/L (40-150); Anion Gap 13 mmol/L (10-20); BUN (Urea Nitrogen) 17 mg/dL (9.8-20.1); Bilirubin, Total 0.4 mg/dL (0.2-1.2); Calc. Creatinine Clearance 0 mL/min (70-130); Calcium 7.7 mg/dL (7.8-10.44); Carbon Dioxide 22 mmol/L (23-31); Chloride 109 mmol/L (98-107); Estimated GFR-MDRD Greater than 90; Globulin 2.3 g/dL (2.4-3.5); Glucose 86 mg/dL (83-110); Lipase 19 U/L (8-78); Potassium 3.9 mmol/L (3.5-5.1); Protein, Total 5.7 g/dL (6.0-8.3); Sodium 140 mmol/L (136-145)
[2017-08-24 22:47] LABS: Bilirubin Negative (Negative); Blood, Urine Negative (Negative); Clarity CLOUDY (Clear); Glucose, Urine (Dipstick) Negative (Negative); Leukocyte Trace (Negative); Nitrite Negative (Negative); Protein, Urine (Dipstick) Negative (Neg-Trace); Specific Gravity, Urine 1.023 (1.002-1.036); Urobilinogen 0.2 mg/dL (0.2-1.0); pH, Urine 5.5 (5.0-9.0)
[2017-08-24 22:48] LABS: Bacteria/HPF None Seen HPF (None Seen); WBC/HPF 0-3 HPF (0-3)
[2017-08-24 22:50] LABS: Pathc Cast-AUWi Flag 3.48 (0-2.49)
[2017-08-24 22:57] LABS: RBC/HPF 0-3 HPF (0-3)
--- NOTE | 2017-08-24 22:57 | CT ---
CT OF ABDOMEN AND PELVIS 08/24/17 COMPARISON: None. HISTORY: Nausea, vomiting, and diarrhea. TECHNIQUE: Serial axial CT imaging is obtained at 5 mm intervals from lung bases through pubic symphysis with IV contrast. Coronal reformatted imaging obtained. FINDINGS: There is a transvenous pacing device incompletely imaged on this exam. Imaged lung bases are unremark able. Small hiatal hernia noted. No free fluid or air. Gallbladder is surgically absent. There is mil d intrahepatic biliary prominence associated with prior cholecystectomy. Two subcentimeter low densit y lesions are noted within the right lobe of the liver measuring up to 6 mm, too small to characteriz e. Spleen, pancreas, adrenal glands, and kidneys unremarkable. There is distention of the urinary bladder. There is extensive diverticulosis of the colon, especially the descending colon and sigmoid colon, wi th no evidence for diverticulitis. There is no evidence for bowel obstruction. There is fluid scatter ed throughout multiple nondilated loops of small bowel which could signify a degree of enteritis in t he proper clinical setting. There is extensive atherosclerotic calcification of the abdominal aorta a nd its branches. No retroperitoneal lymphadenopathy is seen. There is prominent degenerative change w ithin the lumbar spine particularly the L3 and L4 levels. The bones are demineralized. IMPRESSION: Fluid scattered throughout nondilated loops of small bowel may signify enteritis. There is no evidenc e for small bowel obstruction or free intraperitoneal air. There is extensive colonic diverticulosis without evidence for diverticulitis. POS: [facility]
[2017-08-24 22:59] LABS: Hyaline Casts/LPF 0-3 HYALINE CAST LPF (0-3 Hyaline)
[2017-08-24] MEDS ORDERED: Acetaminophen 500 MG TAB ONE (23:45)
[2017-08-25] MEDS ORDERED: Ondansetron HCl/PF 4 MG/2 ML Vial IVP PRN ×2 (01:46→02:22)
[2017-08-25] MEDS ORDERED: Sodium Chloride 0.45% 1,000 ML IV SCH (01:46)
[2017-08-25] MEDS ORDERED: Ondansetron ODT 4 MG TAB SL PRN (01:46)
[2017-08-25] MEDS ORDERED: Mag-Al 1200 mg/1200 mg/30 ML UDCUP PO PRN (02:22)
[2017-08-25] MEDS ORDERED: Acetaminophen 325 MG TAB PO PRN (02:22)
[2017-08-25 02:24] VITALS: BMI 24.3
[2017-08-25] MEDS: Sodium Chloride 0.9% 1,000 ML IV SCH ×2 (03:35→15:13)
[2017-08-25 04:45] LABS: #Neutrophils 5.3 thou/uL (1.40-6.50); %Basophils 0.2 % (0.0-1.0); %Eosinophils 0.3 % (0.0-10.0); %Lymphocytes 13.4 % (21.0-51.0); %Neutrophils 73.2 % (42.0-75.0); Hemoglobin 11.7 g/dL (12.0-16.0); Mean Corpuscular HGB CONC 33.2 g/dL (32.0-36.0); Mean Corpuscular Hemoglobin 32.7 pg (27.0-31.0); Mean Corpuscular Volume 98.6 fl (81.0-99.0); Mean Platelet Volume 7.3 fL (7.4-10.4); Platelet Count 151 thou/uL (130-400); RBC Distribution Width 13.6 % (11.5-14.5); Red Blood Cell (RBC) Count 3.59 mill/uL (4.20-5.40); White Blood Cell (WBC) Count 7.3 thou/uL (4.8-10.8)
--- NOTE | 2017-08-25 04:57 | HP ---
PRIMARY CARE PHYSICIAN: Dr. Argentina Watson. REASON FOR ADMISSION: Enteritis. HISTORY OF PRESENT ILLNESS: An 81-year-old female, who was brought to emergency room because of naus ea, vomiting, and diarrhea. In the emergency room, she was hypotensive and she was having low grade fever. She denies any unusual food ingestion. She denies any sick exposure. She was feeling more w eak and fatigued, tired. She was feeling dizzy and she had very poor p.o. intake. The patient denie s taking any recent antibiotics. She denies any unusual food ingestion. The patient was feeling wea k and tired and that is why she decided to come to emergency room. She denies any hematochezia, melena, or hematemesis. She denies any abdominal pain. She denies any UTI symptoms. She denies any headache, focal motor symptoms. She denies any chest pain, palpitation s or syncope. REVIEW OF SYSTEMS: The following complete review of systems was negative, unless otherwise mentioned in the HPI or below: Constitutional: Weight loss or gain, ability to conduct usual activities. Sk in: Rash, itching. Eyes: Double vision, pain. ENT/Mouth: Nose bleeding, neck stiffness, pain, te nderness. Cardiovascular: Palpitations, dyspnea on exertion, orthopnea. Respiratory: Shortness of breath, wheezing, cough, hemoptysis, fever or night sweats. Gastrointestinal: Poor appetite, abdom inal pain, heartburn, nausea, vomiting, constipation, or diarrhea. Genitourinary: Urgency, frequenc y, dysuria, nocturia. Musculoskeletal: Pain, swelling. Neurologic/Psychiatric: Anxiety, depressio n. Allergy/Immunologic: Skin rash, bleeding tendency. Please see my HPI for pertinent positive and negative. All other review of system reviewed and negative except as mentioned in the HPI. PAST MEDICAL HISTORY: Hypertension, dyslipidemia, coronary artery disease, gastroesophageal reflux d isease, recurrent urinary tract infections, osteoarthritis, osteoporosis, rosacea, varicose vein, ves icoureteral reflux, and asthma/COPD. PAST SURGICAL HISTORY: Cardiac catheterization with stent placement, back surgery x2, pacemaker, cat aract surgery, cholecystectomy, hysterectomy. PAST PSYCHIATRIC HISTORY: Anxiety and depression. SOCIAL HISTORY: The patient lives at home with family. No history of tobacco, alcohol or illicit dr ug abuse. FAMILY HISTORY: No strong family history of premature coronary artery disease, stroke or cancer. CURRENT HOME MEDICATIONS: Nexium 20 mg p.o. daily, Lasix 20 mg p.o. daily, ibuprofen 400 mg p.o. at bedtime, Imdur 60 mg p.o. daily, Remeron 15 mg p.o. at bedtime, Ranexa 500 mg p.o. b.i.d., Crestor 10 mg p.o. at bedtime, potassium chloride 10 mEq p.o. daily, Bystolic 2.5 mg p.o. daily. ALLERGIES: FOSAMAX, LIPITOR, KEFLEX, CLINDAMYCIN, PRAVASTATIN, TRAMADOL, ZOCOR, PHENAZOPYRIDINE, MAC ROBID. EMERGENCY ROOM COURSE: The patient is given Tylenol 1 gram, Imodium, Zofran, IV fluid. PHYSICAL EXAMINATION: VITAL SIGNS: On arrival, blood pressure 97/38, pulse 79, respiratory rate 18, temperature 99.9, satu ration 95% on room air, weight 60.3 kilograms. GENERAL: The patient is currently alert, awake, no acute distress. HEAD: Normocephalic, atraumatic. EYES: Pupils are round and reactive to light. Extraocular muscle intact. ENT: Oropharynx within normal limit. Moist mucous membranes. No oral lesion, no pharyngeal erythem a, no exudate. NECK: Supple, no JVD, no thyromegaly, no carotid bruit. LUNGS: Clear to auscultation without any rhonchi or rales. CARDIAC: S1, S2 regular. No murmur, no gallop, no rub. ABDOMEN: Soft, bowel sounds present. Denies any tenderness, no peritoneal sign, no organomegaly, no mass, no suprapubic tenderness. BACK: Unremarkable, no CVA tenderness. EXTREMITIES: Upper extremities: Passive movement of all joints are normal. Lower extremities: No edema. Good peripheral pulsation, no calf tenderness. SKIN: No skin rash. HEMATOLOGICAL: No lymphadenopathy. PSYCHIATRIC: Normal affect. SIGNIFICANT LABORATORY DATA: EKG showing pacemaker rhythm. CT of the abdomen and pelvis showing tra ce fluid in small bowel consistent with enteritis. CBC: WBC 9.0, hemoglobin 11.9, platelet 177. BM P: Sodium 140, potassium 3.9, chloride 109, carbon dioxide 22, anion gap 13, BUN 17, creatinine 0.62 , glucose 86, calcium 7.7, lactic acid 0.9. LFT: AST 22, ALT 13, alkaline phosphatase 49, albumin 3 .4, lipase 19. Urinalysis: Leukocyte esterase trace. ASSESSMENT AND PLAN: IMPRESSION: 1. Acute enteritis, presumed infectious. We will start Levaquin and Flagyl. We will send stool for infection workup. We will continue with gentle IV fluid with NS at 75 mL per hour. 2. Asymptomatic urinary tract infection suspected. We will send urine culture and the patient is al ready on Levaquin therapy. 3. Hypertension, but currently the patient has relatively low blood pressure and that is why we will hold on antihypertensive medication. If blood pressure permits, then we will start her home medicat ion after confirmation of dose. 4. Dyslipidemia. We will continue the patient's home dose of Crestor 10 mg p.o. at bedtime. 5. Coronary artery disease. We will continue Imdur when patient's blood pressure allows us to start . We will continue Ranexa 500 mg p.o. b.i.d. 6. Gastroesophageal reflux disease. We will continue Pepcid 20 mg p.o. b.i.d. 7. Anxiety and depression. We will continue Remeron 15 mg p.o. at bedtime. 8. Deep venous thrombosis prophylaxis not needed because we are expecting discharge in 24 hours. 9. Gastrointestinal prophylaxis. The patient is already on Pepcid therapy. 10. Code status: The patient is FULL CODE. The patient does not have any surrogate decision maker at this point. Disposition plan based on clinical course. This patient will need PT evaluation and possible placeme nt to rehab if needed depending upon her physical strength. Plan of care discussed with the patient in detail.
[2017-08-25 05:09] LABS: Anion Gap 13 mmol/L (10-20); BUN (Urea Nitrogen) 14 mg/dL (9.8-20.1); Calc. Creatinine Clearance 67 mL/min (70-130); Calcium 7.5 mg/dL (7.8-10.44); Carbon Dioxide 18 mmol/L (23-31); Chloride 111 mmol/L (98-107); Estimated GFR-MDRD Greater than 90; Glucose 77 mg/dL (83-110); Potassium 3.4 mmol/L (3.5-5.1); Sodium 139 mmol/L (136-145)
[2017-08-25] MEDS: metroNIDAZOLE 500 MG in Premix Bag 1 BAG IVPB SCH ×3 (05:11→21:34)
[2017-08-25] MEDS: Saccharomyces boulardii 250 MG CAP PO SCH (08:30)
[2017-08-25] MEDS: Famotidine 20 MG TAB PO SCH ×2 (08:30→20:44)
[2017-08-25 11:42] LABS: Magnesium 2.1 mg/dL (1.6-2.6); Phosphorus 3.3 mg/dL (2.3-4.7)
[2017-08-25 11:44] LABS: Anion Gap 12 mmol/L (10-20); BUN (Urea Nitrogen) 13 mg/dL (9.8-20.1); Calc. Creatinine Clearance 70 mL/min (70-130); Calcium 7.5 mg/dL (7.8-10.44); Carbon Dioxide 20 mmol/L (23-31); Chloride 109 mmol/L (98-107); Estimated GFR-MDRD Greater than 90; Glucose 86 mg/dL (83-110); Potassium 3.9 mmol/L (3.5-5.1); Sodium 137 mmol/L (136-145)
--- NOTE | 2017-08-25 20:38 | PDOC.EVN ---
Event Note - Event Note Event Note: pt seen. States she feels weak all over. Diarrhea has resolved. will get PT to see pt.
[2017-08-25] MEDS: Mirtazapine 15 MG TAB PO SCH (20:44)
[2017-08-25] MEDS: Rosuvastatin 10 MG TAB PO SCH (20:44)
[2017-08-25] MEDS: Calcium Carbonate 500 MG ChewTAB PO SCH (20:45)
--- NOTE | 2017-08-25 21:17 | PDOC.EVN ---
Event Note - Event Note Event Note: RN collected stool sample and is concerned about C Diff - this is being added to the order set. no further needs.
[2017-08-26 05:09] LABS: #Lymphocytes 1.3 thou/uL (1.20-3.40); #Monocytes 0.6 thou/uL (0.11-0.59); #Neutrophils 2.5 thou/uL (1.40-6.50); %Basophils 0.7 % (0.0-1.0); %Eosinophils 0.7 % (0.0-10.0); %Lymphocytes 28.7 % (21.0-51.0); %Monocytes 13.3 % (0.0-10.0); %Neutrophils 56.6 % (42.0-75.0); Hemoglobin 11.4 g/dL (12.0-16.0); Mean Corpuscular HGB CONC 32.7 g/dL (32.0-36.0); Mean Platelet Volume 7.2 fL (7.4-10.4); Platelet Count 151 thou/uL (130-400); RBC Distribution Width 13.5 % (11.5-14.5); Red Blood Cell (RBC) Count 3.55 mill/uL (4.20-5.40); White Blood Cell (WBC) Count 4.5 thou/uL (4.8-10.8)
[2017-08-26] MEDS: metroNIDAZOLE 500 MG in Premix Bag 1 BAG IVPB SCH (05:37)
[2017-08-26 06:09] LABS: Anion Gap 11 mmol/L (10-20); BUN (Urea Nitrogen) 11 mg/dL (9.8-20.1); Calc. Creatinine Clearance 73 mL/min (70-130); Calcium 7.7 mg/dL (7.8-10.44); Carbon Dioxide 19 mmol/L (23-31); Chloride 115 mmol/L (98-107); Estimated GFR-MDRD Greater than 90; Glucose 82 mg/dL (83-110); Potassium 3.8 mmol/L (3.5-5.1); Sodium 141 mmol/L (136-145)
[2017-08-26] MEDS: Sodium Chloride 0.9% 1,000 ML IV SCH (06:37)
[2017-08-26] MEDS ORDERED: Azithromycin 250 MG TAB PO SCH (09:00)
[2017-08-26] MEDS: Famotidine 20 MG TAB PO SCH ×2 (09:45→20:03)
[2017-08-26] MEDS: Calcium Carbonate 500 MG ChewTAB PO SCH ×2 (09:45→20:05)
[2017-08-26] MEDS: Saccharomyces boulardii 250 MG CAP PO SCH (09:45)
[2017-08-26] MEDS: Azithromycin 500 MG in Sodium Chloride 0.9% 250 ML 250 ML IVPB SCH (10:49)
[2017-08-26] MEDS: Ondansetron ODT 4 MG TAB PO PRN (10:58)
[2017-08-26] MEDS: Lactated Ringer's 1,000 ML IV SCH ×2 (11:23→20:43)
--- NOTE | 2017-08-26 18:21 | PDOC.PN ---
- Subjective Encounter Start Date: 08/26/17 Encounter Start Time: 10:15 Subjective: pt up in bed has significant diarrhea at night - Objective Resuscitation Status: Resuscitation Status FULL:Full Resuscitation Vital Signs & Weight: Vital Signs (12 hours) Temp Pulse Resp BP Pulse Ox 08/26/17 15:45 97.6 F 74 12 124/58 L 93 L 08/26/17 11:15 97.8 F 87 12 114/56 L 97 08/26/17 09:39 100 08/26/17 07:58 98.3 F 80 12 08/26/17 07:20 98.3 F 80 12 104/51 L 95 Weight Weight 131 lb I&O: 08/25/17 08/26/17 08/27/17 06:59 06:59 06:59 Intake Total 392 2687 Output Total 400 500 Balance -8 2187 Result Diagrams: 08/26/17 04:40 08/26/17 04:40 Additional Labs: Accuchecks 08/26/17 10:39 POC Glucose 90 Phys Exam - Physical Examination HEENT: PERRLA, moist MMs, sclera anicteric, TM's clear, oral pharynx no lesions , 2+ tonsils Neck: no nodes, no JVD, supple, full ROM Respiratory: no wheezing, no rales, no rhonchi, wheezing present, clear to auscultation bilateral Cardiovascular: RRR, no significant murmur, no rub, gallop, irregular Gastrointestinal: soft, non-tender, no distention, positive bowel sounds Dx/Plan (1) Campylobacter diarrhea Code(s): A04.5 - CAMPYLOBACTER ENTERITIS Status: Acute (2) CAD (coronary artery disease) Code(s): I25.10 - ATHSCL HEART DISEASE OF [place] CORONARY ARTERY W/O ANG PCTRS Status: Acute (3) Sinus bradycardia Code(s): R00.1 - BRADYCARDIA, UNSPECIFIED Status: Acute (4) Syncope, cardiogenic Code(s): R55 - SYNCOPE AND COLLAPSE Status: Acute (5) Hypokalemia Code(s): E87.6 - HYPOKALEMIA Status: Acute - Plan * . pt had diarrhea last night. Her stool was positive for campylobacter enteritis. will change abx to azith. IV fluids changed to LR. pt was nauseated earlier and was put on CL will advance as tolerated. possible discharge in am if she is feeling well. Review of Systems - Review of Systems ENT: negative: Ear Pain, Ear Discharge, Nose Pain, Nose Discharge, Nose Congestion, Mouth Pain, Mouth Swelling, Throat Pain, Throat Swelling, Other Respiratory: negative: Cough, Dry, Shortness of Breath, Hemoptysis, SOB with Excertion, Pleuritic Pain, Sputum, Wheezing Cardiovascular: negative: chest pain, palpitations, orthopnea, paroxysmal nocturnal dyspnea, edema, light headedness, other Gastrointestinal: Diarrhea Genitourinary: negative: Dysuria, Frequency, Incontinence, Hematuria, Retention , Other - Medications/Allergies Allergies/Adverse Reactions: Allergies Allergy/AdvReac Type Severity Reaction Status Date / Time alendronate sodium Allergy Verified 08/25/17 02:33 [From Fosamax] atorvastatin [From Lipitor] Allergy Verified 08/25/17 02:33 cephalexin Allergy Verified 03/10/17 14:16 clindamycin Allergy Verified 03/10/17 14:15 iodine Allergy Verified 03/10/17 07:49 nitrofurantoin Allergy Verified 08/25/17 02:33 phenazopyridine Allergy Verified 03/10/17 14:16 pravastatin [From Pravachol] Allergy Verified 08/25/17 02:33 simvastatin [From Zocor] Allergy Verified 08/25/17 02:33 Sulfa (Sulfonamide Allergy Verified 08/25/17 02:33 Antibiotics) tramadol Allergy Verified 08/25/17 02:33 Medications: Current Medications Acetaminophen (Tylenol) 650 mg PO Q4H PRN PRN Reason: Headache/Fever or Pain Last Admin: 08/25/17 22:30 Dose: 650 mg Al Hydroxide/Mg Hydroxide (Maalox) 30 ml PO Q6H PRN PRN Reason: Heartburn or Indigestion Calcium Carbonate (Tums) 1,000 mg PO BID [facility] Last Admin: 08/26/17 09:45 Dose: 1,000 mg Famotidine (Pepcid) 20 mg PO BID [facility] Last Admin: 08/26/17 09:45 Dose: 20 mg Azithromycin 500 mg/ Sodium (Chloride) 250 mls @ 250 mls/hr IVPB Q24HR [facility] Last Admin: 08/26/17 10:49 Dose: 250 mls Lactated Ringer's (Lactated Ringer's) 1,000 mls @ 100 mls/hr IV .Q10H [facility] Last Admin: 08/26/17 11:23 Dose: 1,000 mls Mirtazapine (Remeron) 15 mg PO HS [facility] Last Admin: 08/25/17 20:44 Dose: 15 mg Ondansetron HCl (Zofran Odt) 4 mg PO Q6H PRN PRN Reason: Nausea/Vomiting Last Admin: 08/26/17 10:58 Dose: 4 mg Ondansetron HCl (Zofran) 4 mg IVP Q6H PRN PRN Reason: Nausea/Vomiting Ranolazine (Ranexa) 500 mg PO BID [facility] Last Admin: 08/26/17 09:45 Dose: 500 mg Rosuvastatin Calcium (Crestor) 10 mg PO HS [facility] Last Admin: 08/25/17 20:44 Dose: 10 mg Saccharomyces Boulardii (Florastor) 250 mg PO DAILY [facility] Last Admin: 08/26/17 09:45 Dose: 250 mg Sodium Chloride (Flush - Normal Saline) 10 ml IVF Q12HR [facility] Last Admin: 08/26/17 09:51 Dose: Not Given Sodium Chloride (Flush - Normal Saline) 10 ml IVF PRN PRN PRN Reason: Saline Flush
[2017-08-26] MEDS: Mirtazapine 15 MG TAB PO SCH (20:03)
[2017-08-26] MEDS: Rosuvastatin 10 MG TAB PO SCH (20:03)
[2017-08-27] MEDS: Lactated Ringer's 1,000 ML IV SCH ×2 (05:15→20:59)
[2017-08-27] MEDS: Famotidine 20 MG TAB PO SCH ×2 (10:21→20:59)
[2017-08-27] MEDS: Saccharomyces boulardii 250 MG CAP PO SCH (10:21)
[2017-08-27] MEDS: Calcium Carbonate 500 MG ChewTAB PO SCH ×2 (10:26→20:58)
[2017-08-27] MEDS: Azithromycin 500 MG in Sodium Chloride 0.9% 250 ML 250 ML IVPB SCH (10:28)
[2017-08-27] MEDS: Ondansetron ODT 4 MG TAB PO PRN (12:05)
--- NOTE | 2017-08-27 13:32 | PDOC.PN ---
- Subjective Encounter Start Date: 08/27/17 Encounter Start Time: 13:32 Patient seen and examined. She was admitted for Cardiogenic Syncope and bradycardia. Also had campylobacter diarrhea which has been slow to resolve. No acute events overnight. - Objective MAR Reviewed: Yes Result Diagrams: 08/26/17 04:40 08/26/17 04:40 Phys Exam - Physical Examination Constitutional: NAD HEENT: moist MMs, sclera anicteric, oral pharynx no lesions Neck: supple, full ROM Respiratory: no wheezing, no rales, no rhonchi, clear to auscultation bilateral Cardiovascular: RRR, no significant murmur, no rub Gastrointestinal: soft, non-tender, no distention, positive bowel sounds Musculoskeletal: no edema, pulses present Psychiatric: normal affect, A&O x 3 Dx/Plan (1) Campylobacter diarrhea Code(s): A04.5 - CAMPYLOBACTER ENTERITIS Status: Acute (2) GERD (gastroesophageal reflux disease) Code(s): K21.9 - GASTRO-ESOPHAGEAL REFLUX DISEASE WITHOUT ESOPHAGITIS Status: Acute Qualifiers: Esophagitis presence: without esophagitis Qualified Code(s): K21.9 - Gastro -esophageal reflux disease without esophagitis (3) Hypertension Code(s): I10 - ESSENTIAL (PRIMARY) HYPERTENSION Status: Chronic Qualifiers: Hypertension type: essential hypertension Qualified Code(s): I10 - Essential (primary) hypertension (4) Sinus bradycardia Code(s): R00.1 - BRADYCARDIA, UNSPECIFIED Status: Resolved (5) Syncope, cardiogenic Code(s): R55 - SYNCOPE AND COLLAPSE Status: Resolved (6) CAD (coronary artery disease) Code(s): I25.10 - ATHSCL HEART DISEASE OF [place] CORONARY ARTERY W/O ANG PCTRS Status: Chronic Qualifiers: Coronary Disease-Associated Artery/Lesion type: unspecified vessel or lesion type [place] vs. transplanted heart: [place] heart Associated angina: without angina Qualified Code(s): I25.10 - Atherosclerotic heart disease of [place] coronary artery without angina pectoris - Plan cont current plan of care, continue antibiotics Still has diarrhea and unable to tolerate a diet. Monitor for now, continue antibiotics. Review of Systems - Medications/Allergies Allergies/Adverse Reactions: Allergies Allergy/AdvReac Type Severity Reaction Status Date / Time alendronate sodium Allergy Verified 08/25/17 02:33 [From Fosamax] atorvastatin [From Lipitor] Allergy Verified 08/25/17 02:33 cephalexin Allergy Verified 03/10/17 14:16 clindamycin Allergy Verified 03/10/17 14:15 iodine Allergy Verified 03/10/17 07:49 nitrofurantoin Allergy Verified 08/25/17 02:33 phenazopyridine Allergy Verified 03/10/17 14:16 pravastatin [From Pravachol] Allergy Verified 08/25/17 02:33 simvastatin [From Zocor] Allergy Verified 08/25/17 02:33 Sulfa (Sulfonamide Allergy Verified 08/25/17 02:33 Antibiotics) tramadol Allergy Verified 08/25/17 02:33 Medications: Current Medications Acetaminophen (Tylenol) 650 mg PO Q4H PRN PRN Reason: Headache/Fever or Pain Last Admin: 08/25/17 22:30 Dose: 650 mg Al Hydroxide/Mg Hydroxide (Maalox) 30 ml PO Q6H PRN PRN Reason: Heartburn or Indigestion Calcium Carbonate (Tums) 1,000 mg PO BID [facility] Last Admin: 08/27/17 10:26 Dose: 1,000 mg Famotidine (Pepcid) 20 mg PO BID [facility] Last Admin: 08/27/17 10:21 Dose: 20 mg Azithromycin 500 mg/ Sodium (Chloride) 250 mls @ 250 mls/hr IVPB Q24HR [facility] Last Admin: 08/27/17 10:28 Dose: 250 mls Lactated Ringer's (Lactated Ringer's) 1,000 mls @ 100 mls/hr IV .Q10H [facility] Last Admin: 08/27/17 05:15 Dose: 1,000 mls Mirtazapine (Remeron) 15 mg PO [facility] Last Admin: 08/26/17 20:03 Dose: 15 mg Ondansetron HCl (Zofran Odt) 4 mg PO Q6H PRN PRN Reason: Nausea/Vomiting Last Admin: 08/27/17 12:05 Dose: 4 mg Ondansetron HCl (Zofran) 4 mg IVP Q6H PRN PRN Reason: Nausea/Vomiting Ranolazine (Ranexa) 500 mg PO BID [facility] Last Admin: 08/27/17 10:21 Dose: 500 mg Rosuvastatin Calcium (Crestor) 10 mg PO [facility] Last Admin: 08/26/17 20:03 Dose: 10 mg Saccharomyces Boulardii (Florastor) 250 mg PO DAILY [facility] Last Admin: 08/27/17 10:21 Dose: 250 mg Sodium Chloride (Flush - Normal Saline) 10 ml IVF Q12HR [facility] Last Admin: 08/27/17 10:21 Dose: Not Given Sodium Chloride (Flush - Normal Saline) 10 ml IVF PRN PRN PRN Reason: Saline Flush
[2017-08-27] MEDS: Mirtazapine 15 MG TAB PO SCH (20:58)
[2017-08-27] MEDS: Rosuvastatin 10 MG TAB PO SCH (20:58)
[2017-08-28] MEDS: Lactated Ringer's 1,000 ML IV SCH ×2 (01:30→05:25)
[2017-08-28 07:50] VITALS: BP 138/60; TEMP 98
[2017-08-28] MEDS: Famotidine 20 MG TAB PO SCH (08:51)
[2017-08-28] MEDS: Saccharomyces boulardii 250 MG CAP PO SCH (08:51)
[2017-08-28] MEDS: Calcium Carbonate 500 MG ChewTAB PO SCH (08:51)
[2017-08-28] MEDS: Azithromycin 500 MG in Sodium Chloride 0.9% 250 ML 250 ML IVPB SCH (10:05)
--- NOTE | 2017-08-28 15:17 | DIS ---
DATE OF ADMISSION: 08/27/2017 DATE OF DISCHARGE: 08/28/2017 DISCHARGE DIAGNOSES: Campylobacter enteritis, gastroesophageal reflux disease, hypertension, sinus b radycardia, cardiogenic syncope, and coronary artery disease. HISTORY OF PRESENT ILLNESS/HOSPITAL COURSE: An 81-year-old female, who was brought to emergency room on account of nausea, vomiting, or diarrhea. At the emergency room, she was hypotensive and had a l ow-grade fever. She denied any sick contacts. Her complaints were fatigue, dizziness, and poor p.o. intake. No recent antibiotic use. No unusual meals. Physical examination was largely unremarkable . Her labs showed no marked abnormalities. CT abdomen and pelvis showed trace fluid in the small juanito wel consistent with enteritis. She was started on IV fluids and stools sent for culture, which came back positive for Campylobacter enteritis. She was then started on a 3-day course of azithromycin. She was continued on IV fluids and her diet was gradually reintroduced. Before discharge, diarrhea h ad resolved. For her chronic medical conditions including hypertension, dyslipidemia, CAD, continued on her home medications. The patient was discharged without incident. HOME MEDICATIONS: Saccharomyces boulardii 250 mg daily, isosorbide mononitrate 60 mg daily, rosuvast atin 10 mg at bedtime, ranolazine 500 mg twice daily, furosemide 20 mg daily, mirtazapine 15 mg at be dtime. PHYSICAL EXAMINATION: Shows exam on the day of discharge, VITAL SIGNS: Blood pressure 138/60, temperature 98.0 degrees Fahrenheit, pulse of 65, respiratory ra te 22, oxygen saturation 93% on room air. GENERAL: She is not in acute distress. She is lying comfortably in bed. HEENT: Normocephalic, atraumatic. Not pale, anicteric. Moist mucous membranes. NECK: Supple. Full range of movement. CARDIOVASCULAR: S1 and S2 only with regular rate and rhythm. No murmurs, rubs, or gallops. RESPIRATORY: Clear breath sounds bilaterally. No wheezes, rales, or rhonchi. ABDOMEN: Soft, nontender, nondistended. Bowel sounds normoactive. No hepatosplenomegaly. MUSCULOSKELETAL: No edema. Moves all extremities spontaneously. NEUROLOGIC: Alert and well oriented. No focal deficits. SKIN: Warm, dry, well-perfused. No rashes or lesions. PSYCHIATRIC: Normal mood and affect. LABORATORY DATA: WBC 4.5, hemoglobin 11.4, platelet count 151. Sodium 141, potassium 3.8, chloride 115, carbon dioxide 19, anion gap 11, BUN 11, creatinine 0.56, glucose 90, calcium 5.7. IMAGING: CT abdomen/pelvis: As stated in HPI. PROCEDURES: None. CONSULTATIONS: None. CONDITION ON DISCHARGE: Stable and improved. DIET: Heart healthy. CARE GOAL: Follow up with the primary care physician within 1 week of discharge for repeat labs. Discharge time 35 minutes including chart review and documentation. ACTIVITY: She could resume as tolerated.
== END 2017-08-28 13:43 | disposition home or self-care (01) | DRG 373 ==
LOC: ERS 19:30 → 2SW 08-25 00:47 → OBSVTOIN 08-27 12:59 → T4-A 08-27 14:21
PROVIDERS: ADMIT Internal Medicine; ATTEND Internal Medicine
DX: A04.5 Campylobacter enteritis (principal); K21.9 Gastro-esophageal reflux disease without esophagitis; I10 Essential (primary) hypertension; I25.10 Atherosclerotic heart disease of native coronary artery without angina pectoris; E78.5 Hyperlipidemia, unspecified; J44.9 Chronic obstructive pulmonary disease, unspecified; Z95.5 Presence of coronary angioplasty implant and graft; F41.9 Anxiety disorder, unspecified; F32.9 Major depressive disorder, single episode, unspecified; Z95.0 Presence of cardiac pacemaker
CPT/HCPCS: 36415; 36416; 74177; 80048; 80053; 81003; 81015; 83605; 83690; 83735; 84100; 85025; 87045; 87046; 87081; 87086; 87324; 87328; 87329; 87449; 87899; 93005; 96360; A4216; G8978-GP-CI; G8979-GP-CI; G8980-GP-CI; G8987-GO-CI; G8988-GO-CI; G8989-GO-CI; J0456; J1956; J7050; J7120; Q0162